=== PATIENT | male | born 1930 | race Caucasian/White ===

== ENCOUNTER 2016-04-08 17:46 | Inpatient (IN) | payer OTHER, MEDICARE ==
[~2016-04-08] VITALS: Ht 165.1 cm; Wt 80.7 kg
[~2016-04-08 17:46] MED LIST: KEFLEX500 MG PO
[2016-04-08 20:30] LABS: MCH 31.2 PG (29.0-34.0); MCHC 33.3 G/DL (30.0-36.0); MCV 93.7 FL (86-99); MEAN PLAT.VOLUME 10.1 uM^3 (9.0-12.4); PLATELET COUNT 253 K/uL (156-360); RBC DIS.WIDTH-CV 13.1 % (11.8-14.6); RBC DIS.WIDTH-SD 43.2 % (39-53); RED BLOOD COUNT 4.59 M/uL (4.00-5.50)
[2016-04-08 20:38] LABS: CHLORIDE 108 mEq/L (99-109); POTASSIUM 4.6 mEq/L (3.7-5.4); SODIUM 140 mEq/L (136-147)
[2016-04-08 20:40] LABS: GLUCOSE 101 mg/dL (70-99)
[2016-04-08 20:41] LABS: INTER. NORMALIZED RATIO 2.7; PROTHROMBIN TIME 28.5 (9.2-11.2); PTT 39.7 (25-32)
[2016-04-08 20:42] LABS: ANION GAP 9 MEQ/L (2-14); TOTAL BILIRUBIN 0.3 mg/dL (0.0-1.0)
[2016-04-08 20:44] LABS: ADD MIUA? NO; BILIRUBIN NEGATIVE; BLOOD NEGATIVE; COLOR YELLOW ((YELLOW)); GLUCOSE (STRIP) NEGATIVE; KETONES NEGATIVE; LEUKOCYTES NEGATIVE; NITRITE NEGATIVE; PROTEIN (STRIP) NEGATIVE; UCUL ADDED? NO; UROBILINOGEN 0.2 MG/DL (0.2-1.0)
[2016-04-08 20:44] LABS: ALKALINE PHOSPHATASE 74 IU/L (3-129); GFR ESTIMATE (CALCULATED) 56 mL/min/
[2016-04-08 20:45] LABS: UREA NITROGEN (BUN) 31 mg/dL (9-23)
[2016-04-09] MEDS ORDERED: KENALOG,ARISTOC80 GM TP (00:56)
[2016-04-09] MEDS ORDERED: TOPROL XL25 MG PO (00:57)
[2016-04-09] MEDS ORDERED: LISINOPRIL10 MG PO (00:57)
[2016-04-09] MEDS ORDERED: VOLTAREN 1% GE100 GM TP (00:57)
[2016-04-09] MEDS ORDERED: ATORVASTATIN CA10 MG PO (00:58)
[2016-04-09] MEDS ORDERED: WARFARIN SODIU2.5 MG PO ×2 (00:58→00:59)
[2016-04-09] MEDS ORDERED: NORVASC2.5 MG PO (00:58)
[2016-04-09] MEDS ORDERED: CENTRUM SILVER1 EAC1 PO (00:59)
[2016-04-09] MEDS ORDERED: OLUX-E 0.05% FO50 GM TP (01:00)
[2016-04-09] MEDS ORDERED: TRAMADOL HCL50 MG PO (01:00)
[2016-04-09] MEDS ORDERED: TYLENOL EXTRA500 MG PO (01:00)
[2016-04-09 13:02] VITALS: BP 146/68
[2016-04-09 13:32] LABS: MCV 95.4 FL (86-99)
[2016-04-09 17:52] VITALS: BP 139/64
[2016-04-09 18:07] LABS: INTER. NORMALIZED RATIO 1.9; PROTHROMBIN TIME 19.8 (9.2-11.2)
[2016-04-09 20:17] VITALS: BP 135/62
[2016-04-09 23:49] VITALS: BP 134/76
[2016-04-10] VITALS (7 sets, daily range): BP systolic 102–150; BP diastolic 58–77
[2016-04-10 07:24] LABS: INTER. NORMALIZED RATIO 1.7
[2016-04-10 07:26] LABS: HEMATOCRIT 44.7 % (38.0-50.0); MCH 31.6 PG (29.0-34.0); MCHC 33.1 G/DL (30.0-36.0); MCV 95.3 FL (86-99); MEAN PLAT.VOLUME 11.2 uM^3 (9.0-12.4); PLATELET COUNT 215 K/uL (156-360); RBC DIS.WIDTH-CV 13.5 % (11.8-14.6); RBC DIS.WIDTH-SD 46.7 % (39-53); RED BLOOD COUNT 4.69 M/uL (4.00-5.50); WHITE BLOOD COUNT 9.9 K/uL (4.1-10.2)
[2016-04-10 07:34] LABS: BASOPHIL COUNT 0.1 K/uL (0-0.1); EOSINOPHIL (%) 18.6 % (0-5); EOSINOPHIL COUNT 1.8 K/uL (0-0.3); IMMATURE GRANULOCYTE (%) 0.6 % (0.0-0.7); IMMATURE GRANULOCYTE COUNT 0.1 K/uL; LYMPHOCYTE COUNT 1.3 K/uL (1.0-2.8); MONOCYTE (%) 7.3 % (3-12); MONOCYTE COUNT 0.7 K/uL (0-0.8); NEUTROPHIL (%) 59.4 % (45-76); NEUTROPHIL COUNT 5.9 K/uL (1.8-6.4)
[2016-04-10 07:35] LABS: ANION GAP 12 MEQ/L (2-14); CHLORIDE 105 MEQ/L (99-109); GFR ESTIMATE (CALCULATED) > 59 mL/min/; GLUCOSE 94 mg/dL (70-99); POTASSIUM 4.9 MEQ/L (3.7-5.4); SAMPLE HEMOLYSIS CHECK 0; SAMPLE ICTERIC CHECK 0; SAMPLE LIPEMIA CHECK 0; SODIUM 140 MEQ/L (136-147); UREA NITROGEN (BUN) 21 mg/dL (9-23)
[2016-04-11 03:48] VITALS: BP 96/50
[2016-04-11 07:52] VITALS: BP 98/58
[2016-04-11 07:53] LABS: EOSINOPHIL (%) 30.1 % (0-5); EOSINOPHIL COUNT 1.9 K/uL (0-0.3); HEMATOCRIT 40.9 % (38.0-50.0); IMMATURE GRANULOCYTE (%) 0.5 % (0.0-0.7); LYMPHOCYTE COUNT 1.2 K/uL (1.0-2.8); MCH 30.6 PG (29.0-34.0); MCV 95.6 FL (86-99); MEAN PLAT.VOLUME 10.2 uM^3 (9.0-12.4); MONOCYTE (%) 7.5 % (3-12); MONOCYTE COUNT 0.5 K/uL (0-0.8); NEUTROPHIL (%) 42.7 % (45-76); NEUTROPHIL COUNT 2.7 K/uL (1.8-6.4); PLATELET COUNT 228 K/uL (156-360); RBC DIS.WIDTH-CV 13.4 % (11.8-14.6); RBC DIS.WIDTH-SD 46.7 % (39-53); RED BLOOD COUNT 4.28 M/uL (4.00-5.50)
[2016-04-11 07:54] LABS: WHITE BLOOD COUNT 6.4 K/uL (4.1-10.2)
[2016-04-11 08:01] LABS: INTER. NORMALIZED RATIO 1.5; PROTHROMBIN TIME 15.9 (9.2-11.2)
[2016-04-11 08:20] LABS: ANION GAP 10 MEQ/L (2-14); CHLORIDE 105 MEQ/L (99-109); GFR ESTIMATE (CALCULATED) 51 mL/min/; GLUCOSE 92 mg/dL (70-99); POTASSIUM 4.4 MEQ/L (3.7-5.4); SAMPLE HEMOLYSIS CHECK 0; SAMPLE ICTERIC CHECK 0; SAMPLE LIPEMIA CHECK 0; SODIUM 142 MEQ/L (136-147); UREA NITROGEN (BUN) 17 mg/dL (9-23)
[2016-04-11 10:43] VITALS: BP 114/66
[2016-04-11 16:03] VITALS: BP 97/63
[2016-04-11 19:14] LABS: HEMATOCRIT 37.1 % (38.0-50.0); MCH 30.9 PG (29.0-34.0); MCHC 32.1 G/DL (30.0-36.0); MCV 96.4 FL (86-99); MEAN PLAT.VOLUME 10.5 uM^3 (9.0-12.4); PLATELET COUNT 205 K/uL (156-360); RBC DIS.WIDTH-CV 13.3 % (11.8-14.6); RBC DIS.WIDTH-SD 46.5 % (39-53); RED BLOOD COUNT 3.85 M/uL (4.00-5.50); WHITE BLOOD COUNT 6.5 K/uL (4.1-10.2)
[2016-04-11 19:21] LABS: BASOPHIL COUNT 0.1 K/uL (0-0.1); EOSINOPHIL (%) 32.3 % (0-5); EOSINOPHIL COUNT 2.1 K/uL (0-0.3); IMMATURE GRANULOCYTE (%) 0.3 % (0.0-0.7); MONOCYTE (%) 8.3 % (3-12); MONOCYTE COUNT 0.5 K/uL (0-0.8); NEUTROPHIL (%) 42.5 % (45-76); NEUTROPHIL COUNT 2.8 K/uL (1.8-6.4)
[2016-04-11 20:00] VITALS: BP 109/65; BP 129/62
[2016-04-12] VITALS: BP 108/55
[2016-04-12 04:16] VITALS: BP 112/60
[2016-04-12 07:13] LABS: HEMATOCRIT 36.8 % (38.0-50.0); MCH 31.3 PG (29.0-34.0); MCHC 32.6 G/DL (30.0-36.0); MCV 95.8 FL (86-99); MEAN PLAT.VOLUME 10.5 uM^3 (9.0-12.4); PLATELET COUNT 210 K/uL (156-360); RBC DIS.WIDTH-CV 13.3 % (11.8-14.6); RBC DIS.WIDTH-SD 46.4 % (39-53); RED BLOOD COUNT 3.84 M/uL (4.00-5.50); WHITE BLOOD COUNT 5.8 K/uL (4.1-10.2)
[2016-04-12 07:22] LABS: INTER. NORMALIZED RATIO 1.4; PROTHROMBIN TIME 14.4 (9.2-11.2)
[2016-04-12 07:38] LABS: EOSINOPHIL (%) 33.2 % (0-5); EOSINOPHIL COUNT 1.9 K/uL (0-0.3); IMMATURE GRANULOCYTE (%) 0.2 % (0.0-0.7); LYMPHOCYTE COUNT 1.1 K/uL (1.0-2.8); MONOCYTE (%) 7.5 % (3-12); MONOCYTE COUNT 0.4 K/uL (0-0.8); NEUTROPHIL (%) 39.3 % (45-76); NEUTROPHIL COUNT 2.3 K/uL (1.8-6.4)
[2016-04-12 07:40] LABS: ANION GAP 6 MEQ/L (2-14); CHLORIDE 108 MEQ/L (99-109); GFR ESTIMATE (CALCULATED) 56 mL/min/; GLUCOSE 95 mg/dL (70-99); POTASSIUM 4.4 MEQ/L (3.7-5.4); SAMPLE HEMOLYSIS CHECK 0; SAMPLE ICTERIC CHECK 0; SAMPLE LIPEMIA CHECK 0; SODIUM 142 MEQ/L (136-147); UREA NITROGEN (BUN) 18 mg/dL (9-23)
[2016-04-12 07:45] VITALS: BP 136/62
[2016-04-12 11:41] VITALS: BP 135/60
== END 2016-04-12 12:38 | disposition home or self-care (01) | DRG 378 ==
LOC: EME 17:46 → RME 17:46 → 2EAST 04-09 00:43 → EDOF 04-09 00:43 → 2EAST 04-09 13:03
PROVIDERS: Internal Medicine; Nurse Practitioner Family
PROC: 0DJ08ZZ Inspection of Upper Intestinal Tract, Via Natural or Artificial Opening Endoscopic (ICD-10-PCS; principal; 2016-04-09)
PROC: 0DJD7ZZ Inspection of Lower Intestinal Tract, Via Natural or Artificial Opening (ICD-10-PCS; 2016-04-10)
DX: K92.2 Gastrointestinal hemorrhage, unspecified (principal); N17.9 Acute kidney failure, unspecified; I95.89 Other hypotension; E86.1 Hypovolemia; I48.0 Paroxysmal atrial fibrillation; Z79.01 Long term (current) use of anticoagulants; K57.30 Diverticulosis of large intestine without perforation or abscess without bleeding; D17.79 Benign lipomatous neoplasm of other sites; D12.2 Benign neoplasm of ascending colon; D12.3 Benign neoplasm of transverse colon; K64.8 Other hemorrhoids; K44.9 Diaphragmatic hernia without obstruction or gangrene; I10 Essential (primary) hypertension; E78.5 Hyperlipidemia, unspecified; M19.90 Unspecified osteoarthritis, unspecified site; R21 Rash and other nonspecific skin eruption; Z87.891 Personal history of nicotine dependence
CPT/HCPCS: 80048; 80053; 81003; 85014; 85018; 85025; 85025 91; 85027; 85610; 85730; 86850; 86900; 86901; 93005; 99281; 99285; B4087; C9113; J1650; J2405; J7030

== ENCOUNTER 2016-08-08 16:12 | Emergency (ER) | payer OTHER, MEDICARE ==
[~2016-08-08] VITALS: Ht 165.1 cm; Wt 77.8 kg
[~2016-08-08 16:12] MED LIST changes: +ATORVASTATIN CA10 MG PO; +CENTRUM SILVER1 EAC1 PO; +KENALOG,ARISTOC80 GM TP; +LISINOPRIL10 MG PO; +NORVASC2.5 MG PO; +OLUX-E 0.05% FO50 GM TP; +TOPROL XL25 MG PO; +TRAMADOL HCL50 MG PO; +TYLENOL EXTRA500 MG PO; +VOLTAREN 1% GE100 GM TP; +WARFARIN SODIU2.5 MG PO
[2016-08-08 16:46] LABS: EOSINOPHIL (%) 3.1 % (0-5); EOSINOPHIL COUNT 0.2 K/uL (0-0.3); IMMATURE GRANULOCYTE (%) 1.5 % (0.0-0.7); IMMATURE GRANULOCYTE COUNT 0.1 K/uL; INSTRUMENT ABS NEUTROPHIL CT 4.8 K/uL; LYMPHOCYTE COUNT 0.9 K/uL (1.0-2.8); MCHC 32.4 G/DL (30.0-36.0); MCV 92.7 FL (86-99); MEAN PLAT.VOLUME 9.6 uM^3 (9.0-12.4); MONOCYTE COUNT 0.7 K/uL (0-0.8); NEUTROPHIL COUNT 4.8 K/uL (1.8-6.4); PLATELET COUNT 285 K/uL (156-360); RBC DIS.WIDTH-CV 13.7 % (11.8-14.6); RBC DIS.WIDTH-SD 46.3 % (39-53); WHITE BLOOD COUNT 6.7 K/uL (4.1-10.2)
[2016-08-08 16:54] LABS: INTER. NORMALIZED RATIO 1.8; PROTHROMBIN TIME 18.7 (9.2-11.2)
[2016-08-08 16:57] LABS: CHLORIDE 106 mEq/L (99-109); POTASSIUM 4.6 mEq/L (3.7-5.4); SODIUM 139 mEq/L (136-147)
[2016-08-08 16:59] LABS: GLUCOSE 111 mg/dL (70-99)
[2016-08-08 17:00] LABS: ANION GAP 10 MEQ/L (2-14)
[2016-08-08 17:01] LABS: TOTAL BILIRUBIN 0.4 mg/dL (0.0-1.0)
[2016-08-08 17:03] LABS: ALKALINE PHOSPHATASE 67 IU/L (3-129); GFR ESTIMATE (CALCULATED) 47 mL/min/
[2016-08-08 17:04] LABS: UREA NITROGEN (BUN) 18 mg/dL (9-23)
[2016-08-08 17:06] LABS: LIPASE 20 U/L (1.0-51.0)
[2016-08-08] MEDS ORDERED: CIPRO500 MG PO (18:42)
[2016-08-08] MEDS ORDERED: FLAGYL500 MG PO (18:42)
[2016-08-08 19:09] VITALS: BP 134/92
== END 2016-08-08 19:10 | disposition home or self-care (01) ==
LOC: EME 16:12 → EXP 16:12
PROVIDERS: Physician Assistant
DX: K57.92 Diverticulitis of intestine, part unspecified, without perforation or abscess without bleeding (principal); E78.5 Hyperlipidemia, unspecified; I10 Essential (primary) hypertension; Z87.891 Personal history of nicotine dependence
CPT/HCPCS: 74177; 80053; 83690; 85025; 85610; 99281; 99284; J1885; J7030

== ENCOUNTER 2016-08-11 05:58 | Emergency (ER) | payer OTHER, MEDICARE ==
[~2016-08-11] VITALS: Ht 165.1 cm; Wt 76.5 kg
[~2016-08-11 05:58] MED LIST changes: +CIPRO500 MG PO; +FLAGYL500 MG PO
[2016-08-11 06:33] LABS: HEMATOCRIT 38.6 % (38.0-50.0); MCH 30.4 PG (29.0-34.0); MCHC 32.6 G/DL (30.0-36.0); MEAN PLAT.VOLUME 9.5 uM^3 (9.0-12.4); PLATELET COUNT 273 K/uL (156-360); RBC DIS.WIDTH-CV 13.7 % (11.8-14.6); RBC DIS.WIDTH-SD 46.7 % (39-53); RED BLOOD COUNT 4.15 M/uL (4.00-5.50); WHITE BLOOD COUNT 4.8 K/uL (4.1-10.2)
[2016-08-11 06:41] LABS: CHLORIDE 110 mEq/L (99-109); POTASSIUM 4.2 mEq/L (3.7-5.4); SODIUM 141 mEq/L (136-147)
[2016-08-11 06:43] LABS: GLUCOSE 117 mg/dL (70-99)
[2016-08-11 06:44] LABS: ANION GAP 11 MEQ/L (2-14)
[2016-08-11 06:45] LABS: TOTAL BILIRUBIN 0.4 mg/dL (0.0-1.0)
[2016-08-11 06:47] LABS: ALKALINE PHOSPHATASE 58 IU/L (3-129); GFR ESTIMATE (CALCULATED) > 59 mL/min/
[2016-08-11 06:48] LABS: UREA NITROGEN (BUN) 10 mg/dL (9-23)
[2016-08-11] MEDS ORDERED: AMOX TR-K CLV1 EAC4 PO (07:20)
[2016-08-11 07:21] LABS: INTER. NORMALIZED RATIO 1.9; PROTHROMBIN TIME 19.8 (9.2-11.2)
[2016-08-11] MEDS ORDERED: METOPROLOL SUCC25 MG PO (07:22)
[2016-08-11] MEDS ORDERED: ATORVASTATIN CA20 MG PO (07:24)
[2016-08-11] MEDS ORDERED: LISINOPRIL10 MG PO (07:25)
[2016-08-11] MEDS ORDERED: WARFARIN SODIUM2 MG PO (07:26)
[2016-08-11] MEDS ORDERED: AMLODIPINE BES2.5 MG PO (07:28)
[2016-08-11 08:09] LABS: ADD MIUA? YES; BILIRUBIN NEGATIVE; BLOOD NEGATIVE; COLOR YELLOW ((YELLOW)); GLUCOSE (STRIP) NEGATIVE; KETONES NEGATIVE; LEUKOCYTES TRACE; NITRITE NEGATIVE; PROTEIN (STRIP) NEGATIVE; SPECIFIC GRAVITY 1.009 (1.000-1.030); UROBILINOGEN 0.2 MG/DL (0.2-1.0)
[2016-08-11 08:18] LABS: BACTERIA NONE SEEN /HPF; EPITHELIAL CELLS NONE SEEN /HPF; HYALINE CASTS 0-5 /LPF; MUCUS TRACE /LPF; RED BLOOD CELLS 0-5 /HPF (0-5); UCUL ADDED? NO; WHITE BLOOD CELLS 0-5 /HPF (0-5)
[2016-08-11] MEDS ORDERED: TYLENOL WITH C1 EACH PO (09:57)
[2016-08-11 10:13] VITALS: BP 138/81
== END 2016-08-11 11:18 | disposition home or self-care (01) ==
LOC: EME 05:58
PROVIDERS: Emergency Medicine
DX: R10.32 Left lower quadrant pain (principal); Q43.8 Other specified congenital malformations of intestine; E78.5 Hyperlipidemia, unspecified; I10 Essential (primary) hypertension; Z87.891 Personal history of nicotine dependence
CPT/HCPCS: 74177; 80053; 81003; 85027; 85610; 99281; 99285; J2270; J7030

== ENCOUNTER 2017-09-03 15:11 | Emergency (ER) | payer OTHER, MEDICARE ==
[~2017-09-03] VITALS: Ht 172.7 cm; Wt 80.1 kg
[~2017-09-03 15:11] MED LIST changes: +AMLODIPINE BES2.5 MG PO; +AMOX TR-K CLV1 EAC4 PO; +ATORVASTATIN CA20 MG PO; +METOPROLOL SUCC25 MG PO; +TYLENOL WITH C1 EACH PO; +WARFARIN SODIUM2 MG PO
[2017-09-03 16:01] LABS: BASOPHIL (%) 0.6 % (0-1); EOSINOPHIL (%) 1.2 % (0-5); EOSINOPHIL COUNT 0.1 K/uL (0-0.3); HEMATOCRIT 40.3 % (38.0-50.0); HEMOGLOBIN 13.8 G/DL (12.5-16.6); IMMATURE GRANULOCYTE (%) 0.4 % (0.0-0.7); LYMPHOCYTE COUNT 1.3 K/uL (1.0-2.8); MCH 30.9 PG (29.0-34.0); MCHC 34.2 G/DL (30.0-36.0); MCV 90.4 FL (86-99); MONOCYTE (%) 7.6 % (3-12); MONOCYTE COUNT 0.6 K/uL (0-0.8); NEUTROPHIL (%) 72.2 % (45-76); NEUTROPHIL COUNT 5.2 K/uL (1.8-6.4); PLATELET COUNT 280 K/uL (156-360); RBC DIS.WIDTH-CV 13.3 % (11.8-14.6); RED BLOOD COUNT 4.46 M/uL (4.00-5.50); WHITE BLOOD COUNT 7.2 K/uL (4.1-10.2)
[2017-09-03 16:07] LABS: INTER. NORMALIZED RATIO 3.1
[2017-09-03 16:10] LABS: PTT 46.1 SEC (25-37)
[2017-09-03 16:14] LABS: ALBUMIN 3.9 g/dL (3.2-4.8); CHLORIDE 107 mEq/L (99-109); POTASSIUM 3.9 mEq/L (3.7-5.4); SODIUM 141 mEq/L (136-147)
[2017-09-03 16:17] LABS: GLUCOSE 127 mg/dL (70-99); TOTAL PROTEIN 6.9 g/dL (6.4-8.3)
[2017-09-03 16:19] LABS: TOTAL BILIRUBIN 0.6 mg/dL (0.0-1.0)
[2017-09-03 16:20] LABS: ALKALINE PHOSPHATASE 104 IU/L (3-129); CREATININE 1.3 mg/dL (0.6-1.3); GFR ESTIMATE (CALCULATED) 55 mL/min/ (58.99-99999)
[2017-09-03 16:21] LABS: UREA NITROGEN (BUN) 21 mg/dL (9-23)
[2017-09-03 16:22] LABS: AST (GOT) 20 IU/L (2-34)
[2017-09-03 16:23] LABS: ALT (GPT) 13 IU/L (3-49)
[2017-09-03] MEDS ORDERED: PREDNISONE50 MG PO (19:07)
[2017-09-03] MEDS ORDERED: LASIX20 MG PO (19:07)
[2017-09-03 19:44] VITALS: BP 126/75
== END 2017-09-03 19:44 | disposition home or self-care (01) ==
LOC: EME 15:11
PROVIDERS: Emergency Medicine
DX: R60.0 Localized edema (principal); R21 Rash and other nonspecific skin eruption; E78.5 Hyperlipidemia, unspecified; I48.91 Unspecified atrial fibrillation; I10 Essential (primary) hypertension; Z79.01 Long term (current) use of anticoagulants; Z87.891 Personal history of nicotine dependence
CPT/HCPCS: 71045; 80053; 83880; 85025; 85610; 85730; 93970; 99281; 99285; J7512

== ENCOUNTER 2017-09-10 20:35 | Inpatient (IN) | payer OTHER, MEDICARE ==
[~2017-09-10] VITALS: Ht 172.7 cm; Wt 79.4 kg
[~2017-09-10 20:35] MED LIST changes: -ATORVASTATIN CA20 MG PO; +LASIX20 MG PO; +LIPITOR10 MG PO; +PREDNISONE50 MG PO
[2017-09-10 21:54] LABS: HEMATOCRIT 39.6 % (38.0-50.0); HEMOGLOBIN 13.7 G/DL (12.5-16.6); MCHC 34.6 G/DL (30.0-36.0); MCV 89.6 FL (86-99); PLATELET COUNT 286 K/uL (156-360); RBC DIS.WIDTH-CV 13.3 % (11.8-14.6); RBC DIS.WIDTH-SD 44.1 % (39-53); RED BLOOD COUNT 4.42 M/uL (4.00-5.50); WHITE BLOOD COUNT 7.5 K/uL (4.1-10.2)
[2017-09-10 22:15] LABS: INTER. NORMALIZED RATIO 2.7
[2017-09-10 22:18] LABS: PTT 37.4 SEC (25-37)
[2017-09-10 22:23] LABS: CHLORIDE 105 mEq/L (99-109); POTASSIUM 4.1 mEq/L (3.7-5.4); SODIUM 138 mEq/L (136-147)
[2017-09-10 22:26] LABS: GLUCOSE 111 mg/dL (70-99); TOTAL PROTEIN 6.8 g/dL (6.4-8.3); TROP-I INTERPRETATION NEGATIVE; TROPONIN-I < 0.01 ng/mL (0.0-0.30)
[2017-09-10 22:27] LABS: TOTAL BILIRUBIN 0.4 mg/dL (0.0-1.0)
[2017-09-10 22:29] LABS: ALKALINE PHOSPHATASE 77 IU/L (3-129); CREATININE 1.2 mg/dL (0.6-1.3); GFR ESTIMATE (CALCULATED) > 59 mL/min/ (58.99-99999)
[2017-09-10 22:30] LABS: UREA NITROGEN (BUN) 25 mg/dL (9-23)
[2017-09-10 22:31] LABS: AST (GOT) 15 IU/L (2-34)
[2017-09-10 22:32] LABS: ALT (GPT) 16 IU/L (3-49)
[2017-09-11] MEDS ORDERED: COUMADIN2 MG PO (01:01)
[2017-09-11] MEDS ORDERED: PREDNISONE10 MG PO ×2 (01:03→01:04)
[2017-09-11] MEDS ORDERED: ATARAX10 MG PO (01:05)
[2017-09-11] MEDS ORDERED: MOVE FREE ULTR1 EAC1 PO (01:05)
[2017-09-11 01:46] LABS: MAGNESIUM 2.4 mg/dL (1.3-2.7)
[2017-09-11 04:29] VITALS: BP 115/79
[2017-09-11 07:53] LABS: INTER. NORMALIZED RATIO 2.5
[2017-09-11 08:00] VITALS: BP 111/84
[2017-09-11 11:14] VITALS: BP 120/81
[2017-09-11 12:55] LABS: TROP-I INTERPRETATION NEGATIVE; TROPONIN-I < 0.01 ng/mL (0.0-0.30)
[2017-09-11 15:43] VITALS: BP 119/65
[2017-09-11] MEDS ORDERED: CARDIZEM CD120 M1 PO (15:51)
== END 2017-09-11 16:34 | disposition home or self-care (01) | DRG 310 ==
LOC: EME 20:35 → EDOF 09-11 01:24 → ENRESERV 09-11 01:43 → 4EAST 09-11 03:20
PROVIDERS: Internal Medicine Cardiovascular Disease; Physician Assistant; Physician Assistant Medical
DX: I48.2 Chronic atrial fibrillation (principal); I10 Essential (primary) hypertension; E78.5 Hyperlipidemia, unspecified; F41.9 Anxiety disorder, unspecified; J44.9 Chronic obstructive pulmonary disease, unspecified; L27.0 Generalized skin eruption due to drugs and medicaments taken internally; T46.1X5 Adverse effect of calcium-channel blockers; Z87.891 Personal history of nicotine dependence; Z91.040 Latex allergy status; Z79.01 Long term (current) use of anticoagulants
CPT/HCPCS: 71046; 80053; 83735; 84443; 84484; 85027; 85610; 85730; 93005; 93306; 99281; 99285; J7030; J7512